=== PATIENT | female | born 1985 | race Caucasian/White ===

== ENCOUNTER 2017-10-10 14:21 | Emergency (ER) | payer SELFPAY ==
--- NOTE | 2017-10-10 16:00 | NUR ---
CALLED TWICE AT THE [facility] NO ANSWER; DEJAH
== END 2017-10-10 16:00 | disposition left against medical advice (07) ==
LOC: MED 14:21 → EDSTATUS 14:21 → MED 16:00
DX: Z53.21 Procedure and treatment not carried out due to patient leaving prior to being seen by health care provider (principal)